=== PATIENT | female | born 1960 | race Caucasian/White ===

== ENCOUNTER → 2017-04-12 | Outpatient (CLI) | payer BC ==
[~2017-04-12] MED LIST: ARIMIDEX1 MG PO; BYSTOLIC5 MG PO; CEPHALEXIN500 M1 PO; COZAAR100 MG PO; HYDROCHLOR50 MG PO; MVI; NORCO 325 MG-51 TAB PO; NORCO 325 MG-7.1 TAB PO; PHENERGAN 25 TA25 MG PO; POTASSIUM CHLO10 ME2 PO; VITAMIN D32000 IU PO
== END ==
LOC: COL.RAD 04-03 11:15
DX: M79.662 Pain in left lower leg (principal)

== ENCOUNTER → 2017-10-11 | Outpatient (CLI) | payer BC ==
[~2017-10-11] VITALS: Ht 167.6 cm; Wt 89.6 kg
[~2017-10-11] MED LIST changes: +CALCIUM 600MG+D1 TAB PO; +COREG 6.256.25 MG/TA PO
[2017-10-11 15:58] VITALS: BP 152/76; PULSE 93; TEMP 98
== END ==
LOC: EUO 15:40
DX: M81.0 Age-related osteoporosis without current pathological fracture (principal)
CPT/HCPCS: J3489

== ENCOUNTER 2019-10-13 10:30 | Outpatient (CLI) | payer BC ==
[2019-10-13 17:29] VITALS: BP 127/82; PULSE 80; TEMP 97.9
== END 2019-10-13 17:30 | disposition home or self-care (01) ==
LOC: EUO 10:30
DX: M81.0 Age-related osteoporosis without current pathological fracture (principal)
CPT/HCPCS: J3489